=== PATIENT | female | born 1965 | race Caucasian/White ===

== ENCOUNTER → 2025-10-05 | Outpatient (CLI) | payer MEDICAID, SELFPAY ==
[2025-10-05 16:45] LABS: Hematocrit 45.7 % (37-47); Hemoglobin 14.7 g/dL (12.0-15.0); Mean Corp Hgb Conc 32.2 g/dL (32-36); Mean Corpuscular Volume 89.8 fL (81-99); Mean Platelet Vol. 9.9 fl (6.2-12.0); Platelet Count 314 K/mm3 (150-450); RBC Distribution Width CV 13.2 % (11.6-14.6); RBC Distribution Width SD 43.3 fl (35.1-43.9); Red Blood Count 5.09 M/mm3 (4.2-5.4); White Blood Count 7.6 K/mm3 (4.4-11.0)
[2025-10-05 17:33] LABS: AST(SGOT) 24 U/L (<=31); Alanine Aminotransfer ALT/SGPT 27 U/L (<=34); Albumin, Serum 4.6 g/dL (3.5-5.0); Alkaline Phosphatase 69 U/L (35-104); Anion Gap 9 (7-18); BUN 16 mg/dL (4-19); BUN/Creat Ratio 17.9 RATIO (10-20); Calcium,Total 10.3 mg/dL (7.6-11.0); Carbon Dioxide 27.3 mmol/L (20.0-29.0); Chloride 103 mmol/L (96-106); Globulin 3.2 g/dL (2.2-4.2); Glucose 105 mg/dL (70-99); Iron 60 ug/dL (50-170); Iron Binding Capacity,Total 345 ug/dL (250-450); Iron Binding Capacity,Unsat 285 ug/dL (228-428); Potassium 4.9 mmol/L (3.5-5.1); Vitamin D,25 Hydroxy 33.8 ng/mL (30-100)
== END | disposition home or self-care (01) ==
LOC: VSLAB 13:16
PROVIDERS: PCP Internal Medicine; Referring Provider Counselor Mental Health; Visit Provider Counselor Mental Health
DX: F42.9 Obsessive-compulsive disorder, unspecified (principal); F33.2 Major depressive disorder, recurrent severe without psychotic features
CPT/HCPCS: 36415; 80053; 82306; 83036; 83540; 83550; 84443; 85027